=== PATIENT | female | born 1950 | race American Indian/Alaskan Native ===

== ENCOUNTER 2020-03-25 07:48 | Emergency (ER) | payer MEDICARE ==
[2020-03-25] MEDS ORDERED: ONDANSETRON 4 MG ODT TAB PO ONE (08:27)
[2020-03-25] MEDS ORDERED: LORazepam 1 MG TAB PO ONE (08:37)
[2020-03-25 09:05] LABS: Basophils % (Auto) 1.4 % (0.0-1.8); Eosinophils % (Auto) 1.3 % (0.0-4.3); Hematocrit 41.3 % (30.3-42.9); Hemoglobin 13.1 gm/dl (10.1-14.3); Lymphocytes # (Auto) 0.7 K/mm3 (1.2-5.4); Lymphocytes % (Auto) 19.1 % (13.4-35.0); Mean Corpuscular HGB Conc 32 % (30-34); Mean Corpuscular Volume 85 fl (79-97); Monocytes # (Auto) 0.3 K/mm3 (0.0-0.8); Monocytes % (Auto) 8.1 % (0.0-7.3); Red Blood Count 4.86 M/mm3 (3.65-5.03); Red Cell Distribution Width 13.8 % (13.2-15.2)
[2020-03-25 09:12] LABS: Alanine Aminotransferase 19 units/L (7-56); Albumin 3.9 g/dL (3.9-5); Blood Urea Nitrogen 10 mg/dL (7-17); Calcium 9.4 mg/dL (8.4-10.2); Hemolysis Index 3
[2020-03-25 09:18] LABS: BUN/Creatinine Ratio 17; Bilirubin,Direct < 0.2 mg/dL (0-0.2)
[2020-03-25 09:57] LABS: Bilirubin,Urine NEG (Negative); Blood,Urine SM (Negative); Color,Urine Colorless (Yellow); Protein,Urine <15 mg/dL mg/dL (Negative); Urobilinogen,Urine < 2.0 mg/dL (<2.0)
--- NOTE | 2020-03-25 10:28 | Emergency Department Report ---
ED General Adult HPI - General Chief complaint: Abdominal Pain Stated complaint: STOMACH PAIN Time Seen by Provider: 03/25/20 08:23 Source: patient, EMS Mode of arrival: Stretcher Limitations: No Limitations - History of Present Illness Initial comments: This is a 70-year old female that complains of left knee pain. She states that she was given some unknown medication by her primary care physician when she went to see them on Friday. Today she states she vomited up water. She does not complain of abdominal pain. He does not complain of persistent nausea. She is somewhat anxious. When asked regarding her blood pressure medicine, she states that she flushed it down the toilet with the medicine her primary care doctor gave her. Although this did not appear to be quite rational, the patient states that she was upset and presume that her medication was making her sick. She has no and intent towards self-harm. She denies fever or chills. She has been otherwise able to tolerate oral feeds, denies nausea or vomiting except for this a.m. She has had no diarrhea. Patient states that she has been diagnosed with arthritis of her left knee in the past and that it feels similar. I have seen this patient in the past once. She did have a strange complaint associated with unusual ideation. She came stating that she needed something to "coat her stomach" at that time. -: hour(s), days(s) Location: left, lower extremity Quality: aching Consistency: intermittent, now resolved Improves with: none Worsens with: none Associated Symptoms: denies other symptoms Treatments Prior to Arrival: none - Related Data Home Medications Medication Instructions Recorded Confirmed Last Taken Aspirin [Baby Aspirin] 81 mg PO QDAY 11/16/13 11/16/13 Unknown Losartan/Hydrochlorothiazide 1 each PO BID 11/16/13 11/16/13 Unknown [Hyzaar 50-12.5 Tablet] NIFEdipine [Nifedipine ER] 90 mg PO QDAY 11/16/13 11/16/13 Unknown Previous Rx's Medication Instructions Recorded Last Taken Type Lansoprazole [Prevacid] 15 mg PO BID #14 cap 11/16/13 Unknown Rx Ondansetron [Zofran] 4 mg PO Q6HR PRN #7 tablet 11/16/13 Unknown Rx Acetaminophen/Codeine [Tylenol 1 tab PO Q4HR PRN #10 tablet 02/10/20 Unknown Rx /Codeine # 3 tab] Lansoprazole 15 mg PO BID #20 capsule. 03/25/20 Unknown Rx Nitrofurantoin Nye/M-Cryst 100 mg PO Q12HR #10 capsule 03/25/20 Unknown Rx [Macrobid CAP] Ondansetron [Zofran Odt] 4 mg PO Q6HR PRN #7 tab.rapdis 03/25/20 Unknown Rx Allergies Allergy/AdvReac Type Severity Reaction Status Date / Time No Known Allergies Allergy Unverified 11/16/13 15:36 ED Review of Systems ROS: Stated complaint: STOMACH PAIN Other details as noted in HPI Constitutional: denies: chills, fever Eyes: denies: eye pain, eye discharge, vision change ENT: denies: ear pain, throat pain Respiratory: denies: cough, shortness of breath, wheezing Cardiovascular: denies: chest pain, palpitations Endocrine: no symptoms reported Gastrointestinal: nausea, vomiting. denies: abdominal pain, diarrhea Genitourinary: denies: urgency, dysuria, discharge Musculoskeletal: arthralgia. denies: back pain, joint swelling Skin: denies: rash, lesions Neurological: denies: headache, weakness, paresthesias Psychiatric: denies: anxiety, depression Hematological/Lymphatic: denies: easy bleeding, easy bruising ED Past Medical Hx - Past Medical History Previous Medical History?: Yes Hx Hypertension: Yes - Surgical History Past Surgical History?: No - Social History Smoking Status: Never Smoker Substance Use Type: None - Medications Home Medications: Home Medications Medication Instructions Recorded Confirmed Last Taken Type Aspirin [Baby Aspirin] 81 mg PO QDAY 11/16/13 11/16/13 Unknown History Lansoprazole [Prevacid] 15 mg PO BID #14 cap 11/16/13 Unknown Rx Losartan/Hydrochlorothiazide 1 each PO BID 11/16/13 11/16/13 Unknown History [Hyzaar 50-12.5 Tablet] NIFEdipine [Nifedipine ER] 90 mg PO QDAY 11/16/13 11/16/13 Unknown History Ondansetron [Zofran] 4 mg PO Q6HR PRN #7 tablet 11/16/13 Unknown Rx Acetaminophen/Codeine [Tylenol 1 tab PO Q4HR PRN #10 tablet 02/10/20 Unknown Rx /Codeine # 3 tab] Lansoprazole 15 mg PO BID #20 capsule. 03/25/20 Unknown Rx Nitrofurantoin Nye/M-Cryst 100 mg PO Q12HR #10 capsule 03/25/20 Unknown Rx [Macrobid CAP] Ondansetron [Zofran Odt] 4 mg PO Q6HR PRN #7 tab.rapdis 03/25/20 Unknown Rx ED Physical Exam - General Limitations: No Limitations General appearance: alert, in no apparent distress - Head Head exam: Present: atraumatic, normocephalic - Eye Eye exam: Present: normal appearance. Absent: scleral icterus - ENT ENT exam: Present: mucous membranes moist - Neck Neck exam: Present: normal inspection - Respiratory Respiratory exam: Present: normal lung sounds bilaterally. Absent: respiratory distress - Cardiovascular Cardiovascular Exam: Present: regular rate, normal rhythm. Absent: systolic murmur, diastolic murmur, rubs, gallop - GI/Abdominal GI/Abdominal exam: Present: soft, normal bowel sounds. Absent: distended, tenderness, guarding, rebound, rigid - Extremities Exam Extremities exam: Present: normal inspection, full ROM, normal capillary refill. Absent: tenderness, pedal edema, joint swelling, calf tenderness - Back Exam Back exam: Present: normal inspection. Absent: CVA tenderness (R), CVA tenderness (L) - Neurological Exam Neurological exam: Present: alert, oriented X3, CN II-XII intact. Absent: motor sensory deficit - Psychiatric Psychiatric exam: Present: normal affect, normal mood - Skin Skin exam: Present: warm, dry, intact, normal color. Absent: rash ED Course Vital Signs 03/25/20 03/25/20 03/25/20 08:06 08:16 08:46 Temperature 97.9 F Pulse Rate 64 187 H Respiratory Rate Blood Pressure 184/82 184/82 187/93 O2 Sat by Pulse 99 97 98 Oximetry 03/25/20 03/25/20 03/25/20 09:00 09:30 09:46 Temperature Pulse Rate 57 L 52 L Respiratory 17 17 Rate Blood Pressure 195/96 171/82 171/82 O2 Sat by Pulse 98 98 98 Oximetry 03/25/20 03/25/20 10:00 10:16 Temperature Pulse Rate 49 L 59 L Respiratory 16 11 L Rate Blood Pressure 167/76 167/76 O2 Sat by Pulse 94 98 Oximetry - Reevaluation(s) Reevaluation #1: Patient had no further vomiting in the emergency department. She complained of no significant pain. Her urinalysis was equivocal for UTI. I will place her on an antibiotic, culture her urine, a proton inhibitor, give her a prescription for Zofran. 03/25/20 10:51 ED Medical Decision Making - Lab Data Result diagrams: 03/25/20 08:39 03/25/20 08:39 Laboratory Results - last 24 hr 03/25/20 03/25/20 03/25/20 08:39 08:39 09:19 WBC 3.4 L RBC 4.86 Hgb 13.1 Hct 41.3 MCV 85 MCH 27 L MCHC 32 RDW 13.8 Lymph % (Auto) 19.1 Nye % (Auto) 8.1 H Eos % (Auto) 1.3 Baso % (Auto) 1.4 Lymph # 0.7 L Nye # 0.3 Eos # 0.0 Baso # 0.0 Seg Neutrophils % 70.1 H Seg Neutrophils # 2.4 Sodium 140 Potassium 3.3 L Chloride 102.5 Carbon Dioxide 24 Anion Gap 17 BUN 10 Creatinine 0.6 Estimated GFR > 60 BUN/Creatinine Ratio 17 Glucose 124 H Calcium 9.4 Total Bilirubin 0.40 Direct Bilirubin < 0.2 Indirect Bilirubin 0.2 AST 19 ALT 19 Alkaline Phosphatase 85 Total Protein 6.6 Albumin 3.9 Albumin/Globulin Ratio 1.4 Lipase 39 Urine Bilirubin Neg Urine RBC (Auto) 1.0 U Epithel Cells (Auto) 1.0 Laboratory Results - last 24 hr 03/25/20 03/25/20 03/25/20 08:39 08:39 09:19 WBC 3.4 L RBC 4.86 Hgb 13.1 Hct 41.3 MCV 85 MCH 27 L MCHC 32 RDW 13.8 Lymph % (Auto) 19.1 Nye % (Auto) 8.1 H Eos % (Auto) 1.3 Baso % (Auto) 1.4 Lymph # 0.7 L Nye # 0.3 Eos # 0.0 Baso # 0.0 Seg Neutrophils % 70.1 H Seg Neutrophils # 2.4 Sodium 140 Potassium 3.3 L Chloride 102.5 Carbon Dioxide 24 Anion Gap 17 BUN 10 Creatinine 0.6 Estimated GFR > 60 BUN/Creatinine Ratio 17 Glucose 124 H Calcium 9.4 Total Bilirubin 0.40 Direct Bilirubin < 0.2 Indirect Bilirubin 0.2 AST 19 ALT 19 Alkaline Phosphatase 85 Total Protein 6.6 Albumin 3.9 Albumin/Globulin Ratio 1.4 Lipase 39 Urine Color Colorless Urine Turbidity Clear Urine pH 7.0 Ur Specific [place] 1.005 Urine Protein <15 mg/dl Urine Glucose (UA) 50 Urine Ketones Neg Urine Blood Sm Urine Nitrite Neg Urine Bilirubin Neg Urine Urobilinogen < 2.0 Ur Leukocyte Esterase Sm Urine WBC (Auto) 1.0 Urine RBC (Auto) 1.0 U Epithel Cells (Auto) 1.0 Laboratory Results - last 24 hr 03/25/20 03/25/20 03/25/20 08:39 08:39 09:19 WBC 3.4 L RBC 4.86 Hgb 13.1 Hct 41.3 MCV 85 MCH 27 L MCHC 32 RDW 13.8 Plt Count 168 Lymph % (Auto) 19.1 Nye % (Auto) 8.1 H Eos % (Auto) 1.3 Baso % (Auto) 1.4 Lymph # 0.7 L Nye # 0.3 Eos # 0.0 Baso # 0.0 Seg Neutrophils % 70.1 H Seg Neutrophils # 2.4 Sodium 140 Potassium 3.3 L Chloride 102.5 Carbon Dioxide 24 Anion Gap 17 BUN 10 Creatinine 0.6 Estimated GFR > 60 BUN/Creatinine Ratio 17 Glucose 124 H Calcium 9.4 Total Bilirubin 0.40 Direct Bilirubin < 0.2 Indirect Bilirubin 0.2 AST 19 ALT 19 Alkaline Phosphatase 85 Total Protein 6.6 Albumin 3.9 Albumin/Globulin Ratio 1.4 Lipase 39 Urine Color Colorless Urine Turbidity Clear Urine pH 7.0 Ur Specific [place] 1.005 Urine Protein <15 mg/dl Urine Glucose (UA) 50 Urine Ketones Neg Urine Blood Sm Urine Nitrite Neg Urine Bilirubin Neg Urine Urobilinogen < 2.0 Ur Leukocyte Esterase Sm Urine WBC (Auto) 1.0 Urine RBC (Auto) 1.0 U Epithel Cells (Auto) 1.0 - EKG Data -: EKG Interpreted by Me EKG shows normal: sinus rhythm, axis, intervals, QRS complexes, ST-T waves Rate: normal - EKG Data Interpretation: no acute changes, LVH (Consider LVH with secondary repolarization abnormality) Critical care attestation.: If time is entered above; I have spent that time in minutes in the direct care of this critically ill patient, excluding procedure time. ED Disposition Clinical Impression: Hypokalemia Gastritis, acute Qualifiers: Gastritis type: unspecified gastritis Gastritis bleeding: without bleeding Qualified Code(s): K29.00 - Acute gastritis without bleeding UTI (urinary tract infection) Qualifiers: Urinary tract infection type: site unspecified Hematuria presence: without hematuria Qualified Code(s): N39.0 - Urinary tract infection, site not specified Adverse effects of medication Qualifiers: Encounter type: initial encounter Qualified Code(s): T50.905A - Adverse effect of unspecified drugs, medicaments and biological substances, initial encounter Disposition: TO HOME OR SELFCARE Is pt being admited?: No Does the pt Need Aspirin: No Condition: Stable Instructions: Abdominal Pain (ED), Urinary Tract Infection in Women (ED), Hypokalemia (ED) Additional Instructions: Follow-up with your primary care provider. Return any acute change or problem. Rx as directed. Prescriptions: Lansoprazole 15 mg PO BID #20 capsule. Nitrofurantoin Nye/M-Cryst [Macrobid CAP] 100 mg PO Q12HR #10 capsule Ondansetron [Zofran Odt] 4 mg PO Q6HR PRN #7 tab.rapdis PRN Reason: Nausea Referrals: PRIMARY CARE, [Primary Care Provider] - 2-3 Days Time of Disposition: 10:55
[2020-03-25 10:42] LABS: Platelet Count 168 K/mm3 (140-440)
[2020-03-25] MEDS ORDERED: POTASSIUM CHLORIDE ER 20 MEQ TAB PO ONE (10:58)
[2020-03-25] MEDS ORDERED: amLODIPine 5 MG TAB PO ONE (11:01)
[2020-03-25 11:08] VITALS: BP 171/85
== END 2020-03-25 11:32 | disposition home or self-care (01) ==
LOC: ED 07:48
DX: T50.905A Adverse effect of unspecified drugs, medicaments and biological substances, initial encounter (principal); I10 Essential (primary) hypertension; K29.00 Acute gastritis without bleeding; N39.0 Urinary tract infection, site not specified; E87.6 Hypokalemia; Z79.899 Other long term (current) drug therapy; Y92.89 Other specified places as the place of occurrence of the external cause
CPT/HCPCS: 36415; 80048; 80076; 81001; 83690; 85025; 93005; Q0162